=== PATIENT | female | born 1975 ===

== ENCOUNTER 2018-03-28 10:45 | Emergency (ER) | payer OTHER ==
[~2018-03-28] VITALS: Ht 152.4 cm; Wt 68.0 kg
[2018-03-28] MEDS ORDERED: NORVASC5 MG (11:08)
[2018-03-28] MEDS ORDERED: GLUCOPHAGE XR750 MG (11:10)
[2018-03-28] MEDS ORDERED: VISTARIL50 MG (11:11)
[2018-03-28] MEDS ORDERED: HYDROCHLOROTHIA25 MG (11:12)
== END 2018-03-28 13:35 | disposition home or self-care (01) ==
LOC: ER 10:45
DX: R00.2 Palpitations (principal); F41.0 Panic disorder [episodic paroxysmal anxiety]